=== PATIENT | female | born 1995 | race Caucasian/White ===

== ENCOUNTER 2023-12-22 10:32 | Emergency (ER) | payer OTHER ==
[~2023-12-22] VITALS: Ht 154.9 cm; Wt 72.6 kg
[2023-12-22 10:56] VITALS: BP 106/65; PULSE 80; RESP 18; TEMP 97.9; O2SAT 97
[2023-12-22 12:51] VITALS: BP 115/71; PULSE 82; RESP 18; TEMP 98.1; O2SAT 98
[2023-12-22] MEDS ORDERED: LORA10TA60 PO (13:00)
[2023-12-22] MEDS ORDERED: PRED20TA5 PO (13:00)
[2023-12-22] MEDS ORDERED: DIPH25TA53 PO (13:00)
== END 2023-12-22 13:16 | disposition home or self-care (01) ==
LOC: MED 10:32
DX: L50.9 Urticaria, unspecified (principal); T45.0X5A Adverse effect of antiallergic and antiemetic drugs, initial encounter; Z79.899 Other long term (current) drug therapy; Y92.89 Other specified places as the place of occurrence of the external cause
CPT/HCPCS: 99283